=== PATIENT | female | born 1975 | race Caucasian/White ===

== ENCOUNTER 2017-04-27 19:41 | Emergency (ER) | payer BC ==
[~2017-04-27] VITALS: Ht 165.1 cm; Wt 56.7 kg
[~2017-04-27 19:41] MED LIST: CIPRO PO; DILTIA XT180 MG PO; ELIMITE60 GM TOP; FLEXERIL10 MG PO; KLONOPIN1 MG PO; MACROBID100 MG PO; MEDROL4 MG/DOSE- PO; METOPROLOL SUCC25 MG PO; MOTRIN600 MG PO; NO MEDICATIONS; PYRIDIUM PO; PYRIDIUM100 MG PO; VICODIN 5/1 TAB 5/50 PO; VICODIN 5/500 T1 TAB PO
[2017-04-27] MEDS ORDERED: NO MEDICATIONS (19:48)
== END 2017-04-27 20:47 | disposition home or self-care (01) ==
LOC: SED 19:41
DX: S50.362A Insect bite (nonvenomous) of left elbow, initial encounter (principal); Z90.710 Acquired absence of both cervix and uterus; F17.210 Nicotine dependence, cigarettes, uncomplicated; W57.XXXA Bitten or stung by nonvenomous insect and other nonvenomous arthropods, initial encounter
CPT/HCPCS: 99281; J2405